=== PATIENT | male | born 1990 | race Caucasian/White ===

== ENCOUNTER → 2017-10-15 | Outpatient (CLI) | payer BC ==
[~2017-10-15] MED LIST: HYDR-4226 PO
--- NOTE | 2017-10-15 10:50 | Diagnostic Imaging Report ---
PROCEDURE: US left lower extremity venous. TECHNIQUE: Multiple real-time grayscale images were obtained over the left lower extremity in various projections. Additional duplex Doppler and color Doppler images were also obtained. INDICATION: Left calf hematoma and pain EXAMINATION: Grayscale and color Doppler evaluation of the deep veins of the left lower extremity were performed with waveform analysis. FINDINGS: Continuous venous flow is present. No intraluminal filling defect is identified. There is normal compressibility and response to augmentation. No abnormal perivascular fluid collection is identified. IMPRESSION: No ultrasound evidence of left lower extremity deep venous thrombosis. Dictated by: Dictated on workstation # [id number]
== END ==
LOC: RAD 10:00
PROVIDERS: ATTEND Nurse Practitioner Family
DX: S80.12XA Contusion of left lower leg, initial encounter (principal)

== ENCOUNTER → 2022-05-25 | Outpatient (CLI) | payer BC ==
--- NOTE | 2022-05-25 10:42 | Diagnostic Imaging Report ---
INDICATION: Back pain. FINDINGS: The alignment is normal. The vertebral body heights are well-maintained. There is a questionable lucency through the pars at L5. There is no spondylolisthesis. No other fractures are identified. IMPRESSION: Questionable pars defect at L5. Further evaluation with CT lumbar spine is recommended. Otherwise unremarkable lumbar spine series Dictated by: Dictated on workstation # [id number]
== END ==
LOC: RAD 08:45
PROVIDERS: ATTEND Nurse Practitioner Family
DX: M54.50 Low back pain, unspecified (principal)
CPT/HCPCS: 72100

== ENCOUNTER → 2022-06-09 | Outpatient (CLI) | payer BC ==
--- NOTE | 2022-06-09 10:45 | Diagnostic Imaging Report ---
PROCEDURE: MRI lumbar spine. TECHNIQUE: Multiplanar, multisequence MRI of the lumbar spine was performed without contrast. INDICATION: Low back pain. COMPARISON: 05/25/2022. FINDINGS: There are 5 lumbar-type vertebral bodies for the purposes of this report. Normal alignment. Vertebral body heights are preserved. No abnormal signal in the conus which terminates at L1. Normal morphology of the cauda equina. The pelvis and paravertebral soft tissues are unremarkable. L4-L5: Central disc protrusion results in moderate bilateral lateral recess and spinal canal stenosis. Mild to moderate bilateral neural foraminal narrowing. L5-S1: Small right paracentral disc protrusion results in moderate right lateral recess narrowing. No spinal canal or neural foraminal narrowing. The intervertebral discs are otherwise well-preserved. No other spinal canal, lateral recess or neural foraminal narrowing in the lumbar spine. IMPRESSION: 1. Small disc protrusions at L4-L5 and L5-S1 resulting in moderate lateral recess stenosis, as above. There is also moderate spinal canal stenosis and [id number] bilateral neural foraminal narrowing at L4-L5. 2. MRI of the lumbar spine is otherwise negative. Dictated by: Dictated on workstation # [id number]
== END ==
LOC: RAD 09:00
PROVIDERS: ATTEND Nurse Practitioner Family
DX: M51.26 Other intervertebral disc displacement, lumbar region (principal); M51.27 Other intervertebral disc displacement, lumbosacral region; M48.061 Spinal stenosis, lumbar region without neurogenic claudication; M48.07 Spinal stenosis, lumbosacral region
CPT/HCPCS: 72148